=== PATIENT | female | born 1985 | race African-American/Black ===

== ENCOUNTER 2017-05-08 12:38 | Outpatient (CLI) | payer MEDICAID ==
[2017-05-08 13:15] LABS: APPEARANCE,URINE CLEAR; BILIRUBIN,URINE NEGATIVE (NEGATIVE); COLOR,URINE YELLOW; GLUCOSE, URINE NEGATIVE (NEGATIVE); KETONES,URINE NEGATIVE (NEGATIVE); LEUKOCYTE ESTERASE,URINE TRACE (NEGATIVE); NITRITE,URINE NEGATIVE (NEGATIVE); PROTEIN,URINE NEGATIVE (NEGATIVE)
[2017-05-08 13:18] LABS: AMNISURE (ROM) NEGATIVE (NEGATIVE)
[2017-05-08 13:31] LABS: URINE AMPHETAMINES SCREEN NEGATIVE; URINE BARBITURATES SCREEN NEGATIVE; URINE BENZODIAZEPINES SCREEN NEGATIVE; URINE COCAINE SCREEN NEGATIVE; URINE MARIJUANA (THC) SCREEN NEGATIVE; URINE METHADONE SCREEN NEGATIVE; URINE PHENCYCLIDINE SCREEN NEGATIVE
--- NOTE | 2017-05-08 13:38 | Non Stress Test Report ---
Non Stress Test Datetime Report Generated by CPN: 05/08/2017 13:38 DEMOGRAPHIC EGA NST: 37.3 INDICATION Indication for Study: Other Indication for Study (NST) Other: lc VITAL SIGNS Temperature - NST: 99.6 MONITORING Monitor Explained: Monitor Explained; Test Explained; Patient Verbalized Understanding Time on Monitor: 05/08/2017 13:05 Time off Monitor: 05/08/2017 13:37 NST Duration: 32 NST INTERVENTIONS NST Interventions: PO Hydration; Reposition Patient Physician Notified NST: H Mario CNM BABY A: [id number] BABY A Movement : Present Contraction Frequency : rare FHR Baseline : 130 Accelerations : 15X15 Decelerations : None Variability : Moderate 6-25bpm NST Review: Meets Criteria for Reactive NST NST Review and Verified By : Randy Corley RNC NST Results: Reactive NST REPORT Report Trigger: Send Report
--- NOTE | 2017-05-08 14:56 | RADIOLOGY REPORT (SQ) ---
EXAM DESCRIPTION: U/S OB LIMITED COMPLETED DATE/TIME: 05/08/2017 2:34 pm REASON FOR STUDY: growth and barrett COMPARISON: No previous imaging this TECHNIQUE: Limited transabdominal grayscale ultrasound for evaluation of specific requested obstetri neil parameters. LIMITATIONS: None. FINDINGS: By multiple measurements, estimated gestational age is 38 weeks 6 days, estimated due date 05/16/2017. Estimated weight 3743 g. This is at the 75th percentile. BARRETT: 10.7 cm. FHR: 130 beats per minute. PRESENTATION: Cephalic. OTHER: Three-vessel cord. Placenta anterior, grade 2 IMPRESSION: LIMITED OBSTETRICAL ULTRASOUND WITH MEASURED PARAMETERS DELINEATED ABOVE. Trimester of : Third trimester - 28 weeks to delivery. TECHNICAL DOCUMENTATION: JOB ID: [id number] [employer]- All Rights Reserved
== END 2017-05-08 15:21 | disposition home or self-care (01) ==
LOC: LC 12:38
PROVIDERS: ATTEND Obstetrics & Gynecology
PROC: 4A1HXCZ Monitoring of Products of Conception, Cardiac Rate, External Approach (ICD-10-PCS; principal; 2017-05-08)
DX: Z34.93 Encounter for supervision of normal pregnancy, unspecified, third trimester (principal)
CPT/HCPCS: 59025; 76815; 80307; 81001; 84112

== ENCOUNTER 2017-05-16 05:06 | Inpatient (IN) | payer MEDICAID ==
[2017-05-16 05:38] LABS: APPEARANCE,URINE SLIGHTLY-CLOUDY; BILIRUBIN,URINE NEGATIVE (NEGATIVE); COLOR,URINE YELLOW; GLUCOSE, URINE NEGATIVE (NEGATIVE); KETONES,URINE NEGATIVE (NEGATIVE); LEUKOCYTE ESTERASE,URINE NEGATIVE (NEGATIVE); NITRITE,URINE NEGATIVE (NEGATIVE); PROTEIN,URINE NEGATIVE (NEGATIVE); URINE SPECIFIC GRAVITY 1.013
[2017-05-16 05:59] LABS: ABSOLUTE EOSINOPHILS # (AUTO) 0.1 10^3/uL (0.0-0.6); ABSOLUTE LYMPHOCYTES (AUTO) 1.7 10^3/uL (0.5-4.7); ABSOLUTE MONOCYTES (AUTO) 0.6 10^3/uL (0.1-1.4); ABSOLUTE NEUT (AUTO) 7.9 10^3/uL (1.7-8.2); BASOPHILS % (AUTO) 0.4 % (0-2); EOSINOPHILS % (AUTO) 0.5 % (0-6); HEMATOCRIT 36.4 % (36.0-47.0); HEMOGLOBIN 12.1 g/dL (12.0-15.5); LYMPHOCYTES % (AUTO) 16.4 % (13-45); MEAN CORPUSCULAR HEMOGLOBIN 26.9 pg (27.0-33.4); MEAN CORPUSCULAR HGB CONC 33.3 g/dL (32.0-36.0); MEAN CORPUSCULAR VOLUME 81 fl (80-97); PLATELET COUNT 231 10^3/uL (150-450); RED CELL DISTRIBUTION WIDTH 16.3 % (11.5-14.0); SEGMENTED NEUTROPHILS % (AUTO) 76.7 % (42-78); TOTAL CELLS COUNTED % (AUTO) 100 %; WHITE BLOOD COUNT 10.3 10^3/uL (4.0-10.5)
[2017-05-16 06:05] LABS: URINE AMPHETAMINES SCREEN NEGATIVE; URINE BARBITURATES SCREEN NEGATIVE; URINE BENZODIAZEPINES SCREEN NEGATIVE; URINE COCAINE SCREEN NEGATIVE; URINE MARIJUANA (THC) SCREEN NEGATIVE; URINE METHADONE SCREEN NEGATIVE; URINE PHENCYCLIDINE SCREEN NEGATIVE
[2017-05-16] MEDS: RINGERS SOLUTION,LACTATED 1,000 ML IV PRN ×2 (06:21→06:55)
[2017-05-16] MEDS ORDERED: MISOPROSTOL 0.2 MG TABLET ONE (06:48)
[2017-05-16] MEDS ORDERED: LIDOCAINE 1% INJ-PF (10 MG/ML) 30 ML SDV ONE (06:49)
[2017-05-16] MEDS ORDERED: OXYTOCIN/NORMAL SALINE 20 UNIT/1,000 ML RTUINJ ONE (06:49)
[2017-05-16] MEDS ORDERED: FENTANYL CITRATE INJ/PF 100 MCG/2 ML AMPUL ONE (07:05)
[2017-05-16] MEDS ORDERED: BUPIVACAINE HCL 0.25 % INJ/PF (2.5 MG/1 ML) 30 ML VIAL ONE (07:05)
[2017-05-16] MEDS ORDERED: EPHEDRINE SULFATE INJ 50 MG/1 ML AMPULE ONE (07:05)
[2017-05-16] MEDS ORDERED: PHENYLEPHRINE HCL INJ/PF 10 MG/1 ML SDV ONE (07:05)
[2017-05-16] MEDS ORDERED: FENTANYL/BUPIVACAINE/NS/PF 200 MCG/100 ML RTUINJ EPI ONE (07:05)
--- NOTE | 2017-05-16 11:31 | L&D Progress Notes ---
PROGRESS NOTES Datetime Report Generated by CPN: 05/16/2017 11:30 PROGRESS NOTE Impression: Normal Progression of Labor; Reactive Non Stress Test Procedures: Artificial ROM; Sterile Vag Exam Plan: Continue Present Management; Anticipate Vaginal Delivery Informed Consent Obtained: Vaginal Delivery; Risks, Benefits and Alternatives Discussed Vital Signs : Reviewed; Within Normal Limits VAGINAL EXAM Dilatation: 7 Dilatation: 5 Effacement: 90 Effacement: 80 Station: -1 Station: -2 Contractions: q 1-4 min Contractions: q 2-3 MEMBRANES Membranes: Ruptured Membranes: Intact FETUS A FHR - Baseline: 135 Monitoring: External US; Doppler Variability: Moderate 6-25bpm Accelerations: 15X15 Decelerations: Variable FHR Category: Category II Presentation: Vertex SIGNATURE SIGNATURE: [id number] SIGNATURE: [id number] Signature: with User ID: [email or web address]
[2017-05-16] MEDS ORDERED: DIBUCAINE 1% OINTMENT 28 GM TP PRN (11:47)
[2017-05-16] MEDS ORDERED: ZOLPIDEM TARTRATE 5 MG TABLET PO PRN (11:47)
[2017-05-16] MEDS ORDERED: MEASLES,MUMPS&RUBELLA VACC/PF 0.5 ML VIAL SUBCUT PRN (11:47)
[2017-05-16] MEDS ORDERED: HYDROCODONE/ACETAMINOPHEN 5-325 MG TABLET PO PRN ×2 (11:47→11:50)
[2017-05-16] MEDS ORDERED: OXYTOCIN/NORMAL SALINE 20 UNIT/1,000 ML RTUINJ IV PRN (11:47)
[2017-05-16] MEDS ORDERED: DIPH/PERTUSS(ACELL)/TETANUS VAC/PF 0.5 ML SYR (>=10YO) IM PRN (11:47)
[2017-05-16] MEDS ORDERED: BENZOCAINE/MENTHOL AEROSOL SPRAY 56 ML TOP PRN (11:47)
[2017-05-16] MEDS ORDERED: PROMETHAZINE HCL 25 MG TABLET PO PRN (11:50)
[2017-05-16] MEDS ORDERED: ONDANSETRON HCL 8 MG TABLET PO PRN (11:50)
[2017-05-16] MEDS ORDERED: DIPHENHYDRAMINE HCL 25 MG CAPSULE PO PRN (11:51)
[2017-05-16] MEDS ORDERED: ACETAMINOPHEN WITH CODEINE #3 TABLET ONE (12:34)
[2017-05-16] MEDS ORDERED: IBUPROFEN 800 MG TABLET ONE (12:34)
--- NOTE | 2017-05-16 12:55 | Admission Physical ---
Datetime Report Generated by CPN: 05/16/2017 12:55 CURRENT ADMISSION Chief Complaint: Uterine Contractions Indication for Induction: Not Applicable Indication for Induction: Term, Intrauterine ; Active Labor Admit Plan: Admit to Unit; Initiate Labor Protocol ALLERGIES Medication Allergies: No Medication Allergies: No Known Allergies (05/16/2017) Medication Allergies: No Known Allergies (04/11/2016) Latex: No Latex Allergies Food Allergies: no Environmental Allergies: no OBSTETRICAL HISTORY EDC: 05/16/2017 00:00 : 9 Para: 4 Term: 4 : 0 SAB: 4 IAB: 0 Ectopic: 0 Livin Cesareans: 0 VBACs: 0 Multiple Births: 0 Gestational Diabetes: Yes Rh Sensitization: No Incompetent Cervix: No JESSICA: No Infertility: No ART Treatment: No Uterine Anomaly: No IUGR: No Hx Previous C/S: No Macrosomia: No Hx Loss/Stillborn: No PIH: No Hx : No Placenta Previa/Abruption: No Depression/PP Depression: No PTL/PROM: No Post Hemorrhage: No Current Procedures: Ultrasound Obstetrical History Comments: g1-2000, 38 weeks, , in labor 4 hours, female, 7lb 1 oz, GDM g2-2000, SAB g3-unknown, SAB g4-2006, 38 weeks, , in labor 4 hours, 7lb 13oz, female g5-unknown, SAB g6- unknown, SAB g7-2013, 38+1, , male, unknown weight g8- 2015, 38 weeks, , female, 6lb 5oz, IOL for PROM g9- current , late to care at 35 weeks, limited care for 4 weeks, and no PNC since march other than ultrasound SEE RECORDS Alcohol: No Marijuana : No Cocaine: No Other Illicit Drugs: No Cigarettes: Former Smoker. [id number] MEDICAL HISTORY Diabetes: No Blood Transfusion: No Pulmonary Disease (Asthma, TB): No Breast Disease: No Hypertension: No Glaciologist Surgery: No Heart Disease: No Hosp/Surgery: Yes Autoimmune Disorder: No Anesthetic Complications: No Kidney Disease: No Abnormal Pap Smear: No Neuro/Epilepsy: No Psychiatric Disorders: No Other Medical Diseases: Yes Hepatitis/Liver Disease: No Significant Family History: No Varicosities/Phlebitis: No Trauma/Violence : No Thyroid Dysfunction: No Medical History Comments: childbirth x 4, sickle cell trait, d_c x 3, former smoker (Annotations: Data stored by [facility] on behalf of user) INFECTIOUS HISTORY Gonorrhea: No Genital Herpes: No Chlamydia: No Tuberculosis: No Syphilis: No Hepatitis: No HIV/AIDS Exposure: No Rash or Viral Illness: No HPV: No PHYSICAL EXAM General: Normal HEENT: Normal Neurologic: Normal Thyroid: Deferred Heart: Normal Lungs: Normal Breast: Deferred Back: Normal Abdomen: Normal Genitourinary Exam: Normal Extremities: Normal DTRs: Normal Pelvic Type: Adequate Vital Signs: Reviewed VAGINAL EXAM Dilatation: 7 Dilatation: 5 Effacement: 90 Effacement: 80 Station: -1 Station: -2 Contraction Comments: q 1-4 min Contraction Comments: q 2-3 MEMBRANES Membranes: Ruptured Membranes: Intact FETUS A EGA: 40.0 Monitoring: External US Variability: Moderate 6-25bpm Accelerations: 15X15 Decelerations: None FHR Category: Category I Presentation: Vertex Admit Comment: 32yo at 40+0ega presents for regular uterine ctx and cvx 4 cm. She presented by EMS due to transportation issues. SHe has had very limited care. 1st visit was at 35wks. Close interval . Pt reports wants BTL and title XX signed in offive. Sickle cell trait - FOB not tested. ELevated 1 hr GTT - refused 3 hr GTT - did not check sugars. Anticpate . Pelvis proven to 7#13oz. PLANS FOR LABOR AND DELIVERY Labor and Delivery: None Pain Management: Epidural Feeding Preference: Both Benefit of Breast Feed Discussed: Yes Circumcision: No INFORMED CONSENT Informed Consent Obtained: Vaginal Delivery; Risks, Benefits and Alternatives Discussed Signature: with User ID: [email or web address]
[2017-05-16] MEDS: IBUPROFEN 800 MG TABLET PO SCH ×2 (13:34→22:26)
--- NOTE | 2017-05-16 14:32 | Delivery Summary ---
Del Sum A-C Datetime Report Generated by CPN: 05/16/2017 14:32 DELIVERY PERSONNEL DELIVERY PERSONNEL: [id number] Delivery Doctor:: Gael Dee MD Labor and Delivery Nurse:: Hallie Almaguer RNload dropper Nurse:: Clare Caro RN Nursery Nurse:: Gladys Flores RN Software Engineer Intern/LEAN FACILITATOR: Shania Cooper CST Additional Personnel: : Luzmaria Murillo RN MATERNAL INFORMATION Delivery Anesthesia: Epidural Medications After Delivery: Pitocin Drip 20 Units/1000ml NSS Estimated Blood Loss (ml): 100 Maternal Complications: None Provider Comments: Pt C_P. Head delivered OA. Anterior and posterior shoulder delivered. Baby placed on mom's abdomen. After 1 min, cord clamped x 2 and cut by mom. Placenta delivered intact. Laceration repaired as above. LABOR SUMMARY EDC: 05/16/2017 00:00 No. Babies in Womb: 1 Attempted: No Labor Anesthesia: Epidural LABOR INFORMATION Reason for Induction: Not Applicable Onset of Labor: 05/15/2017 11:00 Complete Dilatation: 05/16/2017 10:36 Oxytocin: N/A Group B Beta Strep: negative Antibiotics # of Doses: n/a Antibiotics Time of Last Dose: n/a Name of Antibiotic Given: n/a Steroids Given: None Reason Steroids Not Administered: Not Applicable MEMBRANES Membranes Rupture Method: Artificial Rupture of Membranes: 05/16/2017 09:24 Length of Rupture (hr): 1.58 Amniotic Fluid Color: Clear Amniotic Fluid Amount: Moderate Amniotic Fluid Odor: Normal STAGES OF LABOR Stage 1 hr: 23 Stage 1 min: 36 Stage 2 hr: 0 Stage 2 min: 23 Stage 3 hr: 0 Stage 3 min: 7 Total Time in Labor hr: 24 Total Time in Labor min: 6 VAGINAL DELIVERY Episiotomy: None Laceration #1: Perineal Laceration Extension #1: N/A Laceration Repair: Yes Laceration Repair Note: Perineal abrasion oozing. Reapproximated with 3.0 Vicryl in interrupted fashion. 3 stitches placed. Sponge Count Correct: N/A Sharps Count Correct: Yes CSECTION DELIVERY Primary Indication: N/A Secondary Indication: N/A CSection Incidence: N/A Labor: N/A Elective: N/A CSection Incision: N/A BABY A INFORMATION Infant Delivery Date/Time: 05/16/2017 10:59 Method of Delivery: Vaginal Born in Route : No : N/A Forceps: N/A Vacuum Extraction: N/A Shoulder Dystocia : No PRESENTATION/POSITION BABY A Presentation: Cephalic Cephalic Presentation: Vertex Vertex Position: Left Occipital Anterior Breech Presentation: N/A PLACENTA INFORMATION BABY A Placenta Delivery Time : 05/16/2017 11:06 Placenta Method of Delivery: Spontaneous Placenta Status: Delivered SCORES BABY A Heart Rate 1 min: >100 bpm Resp Effort 1 min: Good Cry Reflex Irritability 1 min: Cough or Sneeze or Pulls Away Muscle Tone 1 min: Active Motion Color 1 min: Body [place], Extremities Blue Resuscitation Effort 1 min: Tactile Stimulation SCORE 1 MIN: 9 Heart Rate 5 min: >100 bpm Resp Effort 5 min: Good Cry Reflex Irritability 5 min: Cough or Sneeze or Pulls Away Muscle Tone 5 min: Active Motion Color 5 min: Body [place], Extremities Blue Resuscitation Effort 5 min: Tactile Stimulation SCORE 5 MIN: 9 INFORMATION BABY A Gestational Age at Delivery: 40.0 Gestational Status: Full Term- 39- 40.6 Weeks Outcome : Liveborn Infant Condition : Stable Infant Sex: Female IDENTIFICATION BABY A Verification Date/Time: 05/16/2017 11:09 ID Band Number: [id number] Mother's Name Verified: Yes RN Verifying : R. Mardarlynfka, RN/A. Gordo, RN WEIGHT/LENGTH BABY A Birthweight (gm): 3740 Infant Weight (lb): 8 Infant Weight (oz): 4 Length (in): 20.00 Infant Length (cm): 50.80 CORD INFORMATION BABY A No. Cord Vessels: 3 Nuchal Cord : N/A Cord Blood Taken: Yes-For Eval (Mom's Blood Type - or O+) Suction: None ASSESSMENT BABY A Infant Complications: None Physical Findings at Delivery: Within Normal Limits Respirations: Appears Normal Skin to Skin: Yes Meat And Poultry Inspector/ALS Called : No Care By: HChristopher Mark, RN Transferred To: Remains with Mother BABY B INFORMATION : N/A SIGNATURES Signature: with User ID: [email or web address]
[2017-05-16] MEDS: DOCUSATE SODIUM 100 MG CAPSULE PO SCH (17:42)
[2017-05-16] MEDS: FERROUS SULFATE 325 MG TABLET PO SCH (17:42)
[2017-05-16] MEDS: ACETAMINOPHEN 325 MG TABLET PO PRN (17:45)
[2017-05-16] MEDS: FAMOTIDINE 20 MG TABLET PO PRN (23:52)
[2017-05-17] MEDS: IBUPROFEN 800 MG TABLET PO SCH ×3 (06:01→21:45)
[2017-05-17 07:36] LABS: HEMATOCRIT 29.8 % (36.0-47.0); MEAN CORPUSCULAR HEMOGLOBIN 26.9 pg (27.0-33.4); MEAN CORPUSCULAR HGB CONC 33.3 g/dL (32.0-36.0); MEAN CORPUSCULAR VOLUME 81 fl (80-97); PLATELET COUNT 206 10^3/uL (150-450); RED BLOOD COUNT 3.69 10^6/uL (3.72-5.28); RED CELL DISTRIBUTION WIDTH 16.3 % (11.5-14.0); WHITE BLOOD COUNT 10.6 10^3/uL (4.0-10.5)
[2017-05-17 07:37] LABS: HEMOGLOBIN 9.9 g/dL (12.0-15.5)
--- NOTE | 2017-05-17 09:04 | PDOC PROGRESS REPORT ---
Subjective-OB Subjective: Post Delivery Day: 1 32 year old. Denies any needs at this time, lochia stable, pain well controlled , voiding without difficulty. Physical Exam (OB) Vital Signs: Temp Pulse Resp BP Pulse Ox 98.1 F 93 18 114/77 99 05/16/17 20:06 05/16/17 20:06 05/16/17 20:06 05/16/17 20:06 05/16/17 20:06 Intake & Output 05/16/17 05/17/17 05/18/17 06:59 06:59 06:59 Intake Total 1000 Balance 1000 Weight 99 kg - Lochia Lochia Amount: Scant < 10 ml Lochia Color: Rubra/Red - Abdomen Description: Tender, Soft, Round Hernia Present: No Fundal Description: Firm, Midline Fundal Height: u/u - u/2 Objective-Diagnostic Laboratory: 05/17/17 07:18 05/17/17 07:18 WBC 10.6 H RBC 3.69 L Hgb 9.9 L D Hct 29.8 L MCV 81 MCH 26.9 L MCHC 33.3 RDW 16.3 H Plt Count 206 Assessment and Plan(PN) - Assessment and Plan (1) Delivery normal Is this a current diagnosis for this admission?: Yes Plan: routine pp care (2) Insufficient antepartum care Is this a current diagnosis for this admission?: Yes Plan: d/c planning - Time Spent with Patient Time with patient: Less than 15 minutes Critical Time spent with patient: Less than 15 minutes Medications reviewed and adjusted accordingly: Yes - Disposition Anticipated Discharge: Home Within: within 24 hours
[2017-05-17] MEDS: SENNOSIDES/DOCUSATE 8.6-50 MG 1 EACH TABLET PO SCH (09:31)
[2017-05-17] MEDS: FERROUS SULFATE 325 MG TABLET PO SCH ×2 (09:31→17:04)
[2017-05-17] MEDS: PRENATAL VITAMIN W DHA CAPSULE PO SCH (09:31)
[2017-05-17] MEDS: DOCUSATE SODIUM 100 MG CAPSULE PO SCH ×2 (09:32→17:04)
[2017-05-17] MEDS: FAMOTIDINE 20 MG TABLET PO PRN ×2 (09:32→23:07)
[2017-05-17] MEDS: ACETAMINOPHEN 325 MG TABLET PO PRN (17:04)
[2017-05-18] MEDS: IBUPROFEN 800 MG TABLET PO SCH (06:40)
[2017-05-18] MEDS: DOCUSATE SODIUM 100 MG CAPSULE PO SCH (09:28)
[2017-05-18] MEDS: FERROUS SULFATE 325 MG TABLET PO SCH (09:28)
[2017-05-18] MEDS: SENNOSIDES/DOCUSATE 8.6-50 MG 1 EACH TABLET PO SCH (09:28)
[2017-05-18] MEDS: PRENATAL VITAMIN W DHA CAPSULE PO SCH (09:28)
[2017-05-18] MEDS: FAMOTIDINE 20 MG TABLET PO PRN (09:29)
[2017-05-18 10:30] VITALS: BP 111/72
--- NOTE | 2017-05-18 10:44 | PDOC PROGRESS REPORT ---
Subjective-OB Subjective: Post Delivery Day: 32 year old. Denies any needs at this time Doing well, c/o of cramping and would like to get some [place] for home, scant bleeding, breast/bottle feeding, voiding, ambulating Physical Exam (OB) Vital Signs: Temp Pulse Resp BP Pulse Ox 98.2 F 82 16 111/72 99 05/18/17 10:23 05/18/17 10:23 05/18/17 10:23 05/18/17 10:23 05/18/17 10:23 Intake & Output 05/17/17 05/18/17 05/19/17 06:59 06:59 06:59 Intake Total 1000 Balance 1000 - PIH/Pre-Eclampsia DTR's: 2 + Clonus: Negative Headache: Absent Epigastric Pain: No Visual Changes: No - Lochia Lochia Amount: Small 10-25 ml Lochia Color: Rubra/Red - Abdomen Description: Soft Hernia Present: No Fundal Description: Firm, Midline Fundal Height: u/u - u/2 Objective-Diagnostic Laboratory: 05/17/17 07:18 Assessment and Plan(PN) - Assessment and Plan (1) Insufficient care, delivered, current hospitalization Is this a current diagnosis for this admission?: Yes (2) Delivery normal Is this a current diagnosis for this admission?: Yes - Time Spent with Patient Time with patient: Less than 15 minutes Medications reviewed and adjusted accordingly: Yes - Disposition Anticipated Discharge: Home Within: Other - home today
--- NOTE | 2017-05-18 10:50 | PDOC DISCHARGE SUMMARY ---
Final Diagnosis Discharge Date: 05/18/17 - Final Diagnosis (2) Insufficient care, delivered, current hospitalization Is this a current diagnosis for this admission?: Yes Discharge Data - Discharge Medication Prescriptions: Hydrocodone/Acetaminophen [[place] 5-325 mg Tablet] 1 tab PO Q6HP PRN #10 tablet PRN Reason: Vit/Dha [ Multi + Dha Capsule] 1 cap PO DAILY #30 capsule Home Medications: Vit/Iron Fum/Folic AC [ Tablet] 1 tab PO DAILY #0 tablet Hydrocodone/Acetaminophen [[place] 5-325 mg Tablet] 1 tab PO Q6HP PRN #10 tablet 05/18/17 Vit/Dha [ Multi + Dha Capsule] 1 cap PO DAILY #30 capsule 05/18 Gestational Age: 40 Reason(s) for Admission: Onset of Labor Procedures: NST, Ultrasound Intrapartum Procedure(s): Spontaneous Vaginal Delivery Complication(s): Laceration-Perineal Laceration-Degree: 1st - [place] Data Baby 1 Female at 1 minute: 9 at 5 minutes: 9 Weight: 3.742 kg Home with Mother: Yes Complications: No - Diagnosis Test Laboratory: Temp Pulse Resp BP Pulse Ox 98.2 F 82 16 111/72 99 05/18/17 10:23 05/18/17 10:23 05/18/17 10:23 05/18/17 10:23 05/18/17 10:23 05/16/17 05/16/17 05/17/17 05:11 05:46 07:18 RBC 4.50 3.69 L Hgb 12.1 9.9 L D Hct 36.4 29.8 L Urine Opiates Screen NEGATIVE - Discharge information/Instructions Discharge Activity: Activity As Tolerated, No Lifting Over 10 Pounds, No Lifting /Push/Pulling Discharge Diet: As Tolerated Disposition: HOME, SELF-CARE Follow [facility] with: [facility] in: 4, Weeks
== END 2017-05-18 13:04 | disposition home or self-care (01) | DRG 775 ==
LOC: LC 05:06 → LR 05:43 → 2S 12:52
PROVIDERS: ADMIT Student in an Organized Health Care Education/Training Program; ATTEND Student in an Organized Health Care Education/Training Program
PROC: 10E0XZZ Delivery of Products of Conception, External Approach (ICD-10-PCS; principal; 2017-05-16)
PROC: 4A1HXCZ Monitoring of Products of Conception, Cardiac Rate, External Approach (ICD-10-PCS; 2017-05-16)
PROC: 0HQ9XZZ Repair Perineum Skin, External Approach (ICD-10-PCS; 2017-05-16)
PROC: 10907ZC Drainage of Amniotic Fluid, Therapeutic from Products of Conception, Via Natural or Artificial Opening (ICD-10-PCS; 2017-05-16)
DX: O70.0 First degree perineal laceration during delivery (principal); O99.334 Smoking (tobacco) complicating childbirth; F17.200 Nicotine dependence, unspecified, uncomplicated; Z37.0 Single live birth; Z3A.40 40 weeks gestation of pregnancy; Z87.891 Personal history of nicotine dependence
CPT/HCPCS: 36415; 80307; 81005; 85025; 85027; 86592; 86850; 86900; 86901; 90715; 94760; J2370; J2590; J3010; J3490

== ENCOUNTER 2019-03-27 08:26 | Emergency (ER) | payer MEDICAID ==
[2019-03-27 08:30] VITALS: BP 123/71
[2019-03-27] MEDS ORDERED: IBUPROFEN 800 MG TABLET PO ONE (10:16)
--- NOTE | 2019-03-27 10:16 | ER Document Report ---
ED Fall - General Chief Complaint: Fall Injury Stated Complaint: FALL/LOW BACK PAIN,LEFT SHOULDER PAIN Time Seen by Provider: 03/27/19 10:10 Primary Care Provider: MONIQUE HOLLOWAY MD [Primary Care Provider] - Follow up as needed Mode of Arrival: Ambulatory Information source: Patient Notes: 34-year-old female presented to ED for tripping this morning when she fell she tried to catch herself with her right arm injuring her right shoulder. She states her foot had went into a hole. She states when she fell she had a shooting pain of her back and when she tried to walk it got a little worse so she decided to come to the emergency room. She does not have leg pain but she does have low back and right shoulder pain. States she does have tenderness to her chest wall muscles also. Will get x-ray of the lower back and the right shoulder. TRAVEL OUTSIDE OF THE [place] IN LAST 30 DAYS: No - HPI Occurred: This morning Where: Outdoors Context: Tripped Associated symptoms: None Location of injury/pain: Back, Chest - Chest wall, Shoulder - Right Quality of pain: Sharp Severity: Moderate Pain Level: 2 - Related data Allergies/Adverse Reactions: No Known Allergies Allergy (Verified 03/27/19 08:33) Past Medical History - General Information source: Patient - Social History Smoking Status: Former Smoker Chew tobacco use (# tins/day): No Frequency of alcohol use: None Drug Abuse: None Lives with: Family Family History: Reviewed & Not Pertinent Patient has suicidal ideation: No Patient has homicidal ideation: No Malignancy Medical History: Reports: None GI Medical History: Reports: None Musculoskeletal Medical History: Reports None Skin Medical History: Reports None Psychiatric Medical History: Reports: None Traumatic Medical History: Reports: None Infectious Medical History: Reports: None Surgical Hx: Negative Past Surgical History: Reports: None - Immunizations Immunizations up to date: Yes Hx Diphtheria, Pertussis, Tetanus Vaccination: Yes Review of Systems - Review of Systems Constitutional: No symptoms reported EENT: No symptoms reported Cardiovascular: No symptoms reported Respiratory: No symptoms reported Gastrointestinal: No symptoms reported Genitourinary: No symptoms reported Female Genitourinary: No symptoms reported Musculoskeletal: No symptoms reported, Back pain, Joint pain, Muscle pain, Muscle stiffness Skin: No symptoms reported Hematologic/Lymphatic: No symptoms reported Neurological/Psychological: No symptoms reported -: Yes All other systems reviewed and negative Physical Exam - Vital signs Vitals: Temp Pulse Resp BP Pulse Ox 98.1 F 95 26 H 123/71 98 03/27/19 08:29 03/27/19 08:29 03/27/19 08:29 03/27/19 08:29 03/27/19 08:29 Interpretation: Normal - General General appearance: Appears well, Alert - HEENT Head: Normocephalic, Atraumatic Eyes: Normal Pupils: PERRL - Respiratory Respiratory status: No respiratory distress Chest status: Nontender Breath sounds: Normal Chest palpation: Normal - Cardiovascular Rhythm: Regular Heart sounds: Normal auscultation Murmur: No - Abdominal Inspection: Normal Distension: No distension Bowel sounds: Normal Tenderness: Nontender Organomegaly: No organomegaly - Back Back: Normal, Tender. No: Deformity/step-off, CVA tenderness, Vertebra tenderness, Scars, Scoliosis, Wounds Notes: Low back pain with no vertebral tenderness. No signs or symptoms of cauda equina - Extremities General upper extremity: Normal inspection, Normal color, Normal ROM, Normal temperature General lower extremity: Normal inspection, Nontender, Normal color, Normal ROM, Normal temperature, Normal weight bearing. No: Shawn's sign Shoulder: Tender. No: Abrasion, Deformity, Ecchymosis, Instability, Laceration, Limited ROM - Neurological Neuro grossly intact: Yes Cognition: Normal Orientation: AAOx4 [place] Com[place] Scale Eye Opening: Spontaneous [place] Coma Scale Verbal: Oriented [place] Scale Motor: Obeys Commands [place] Scale Total: 15 Speech: Normal Motor strength normal: LUE, RUE, LLE, RLE Sensory: Normal - Psychological Associated symptoms: Normal affect, Normal mood - Skin Skin Temperature: Warm Skin Moisture: Dry Skin Color: Normal Course - Re-evaluation Re-evalutation: 03/27/19 11:17 After performing a Medical Screening Examination, I estimate there is LOW risk for EXPANDING OR RUPTURED ABDOMINAL AORTIC ANEURYSM, CAUDA EQUINA SYNDROME, EPIDURAL MASS LESION, or HERNIATED DISK CAUSING SEVERE SPINAL STENOSIS, thus I consider the discharge disposition reasonable. I have reevaluated this patient multiple times and no significant life threatening changes are noted. The patien t and I have discussed the diagnosis and risks, and we agree with discharging home and close follow-up. We also discussed returning to the Emergency Department immediately if new or worsening symptoms occur with the understanding that symptoms and presentations can change. We have discussed the symptoms which are most concerning (e.g., saddle anesthesia, urinary or bowel incontinence or retention, changing or worsening pain) that necessitate immediate return. Juan x-rays with patient. There were no injuries to the shoulder or back noted on x- ray. With reports of x-rays given to patient. Patient was given instructions for ice packs warm packs and exercises for shoulder and low back. Patient was given prescription for muscle relaxers and ibuprofen. Patient was discharged home after she verbalized understanding and agreement with treatment plan. - Vital Signs Vital signs: Temp Pulse Resp BP Pulse Ox 98.1 F 95 26 H 123/71 98 03/27/19 08:29 03/27/19 08:29 03/27/19 08:29 03/27/19 08:29 03/27/19 08:29 - Diagnostic Test Radiology reviewed: Image reviewed, Reports reviewed Discharge - Discharge Clinical Impression: Shoulder pain Qualifiers: Chronicity: acute Laterality: right Qualified Code(s): M25.511 - Pain in right shoulder Low back pain Qualifiers: Chronicity: acute Back pain laterality: right Sciatica presence: without sciatica Qualified Code(s): M54.5 - Low back pain Condition: Stable Disposition: HOME, SELF-CARE Additional Instructions: MUSCLE STRAIN: You have strained a muscle -- torn the fibers within the muscle. This often occurs with strenuous exertion, or during an injury that suddenly stretches the muscle. The seriousness of a strain varies. Some strains heal within days, others cause problems for months. X-rays cannot show a muscle strain. X-rays are taken only if symptoms suggest that a fracture could be present. The usual treatment of a muscle strain is rest and ice packs. Sometimes, a sling, splint, or crutches may be necessary to rest the muscle. The muscle can be used again once pain subsides. Severe strains require a special exercise and stretching program to prevent permanent stiffness and disability. Your doctor will advise you if this will be necessary. Call the doctor immediately if pain or swelling becomes severe, or if numbness or discoloration develop. CONTUSION: Your injury has resulted in a contusion -- a crushing of the deep tissues. No injury to important structures was detected during the physician's exam. Contusions vary in the amount of pain they cause, and in the length of time required for healing. Typically, the area will become bruised, and will remain painful to touch for two or three weeks. However, most patients are back to wor aleida and playing within a few days. After the initial period of rest and cold-packs, your symptoms (together with the doctor's recommendations) will determine how rapidly you can get back to full activity. Usually this means "do what feels okay, but don't do things that hurt." If re-examination was recommended, it's important to follow up as instructed. Call the doctor or return any time if pain increases, if swelling becomes severe, if you develop numbness or weakness in an injured extremity, or if any other alarming symptoms occur. Shoulder Injury You have injured your shoulder. This usually results from stretching or tearing of the tendons during trauma. Time and protection are required in order to heal properly. Many injuries are quite disabling, and should be taken seriously. Initial treatment includes cold packs and a sling to rest the shoulder. The physician has assessed the seriousness of your injury, and has outlined a treatment plan. Understand that this treatment may change, depending on how you progress. If a re-examination was recommended, it is important that you follow up as instructed. Some shoulder injuries (such as partial tear of the rotator cuff) are only suspected after you've failed to improve. Call us if there's severe pain, numbness, or loss of function. LOW BACK PAIN: Three out of every four people will have an episode of disabling back pain during their lifetime. Most commonly the pain is due to straining of the muscles and ligaments in the low back. Usual treatment includes: (1) Rest on a firm surface. Avoid lying on your stomach. (2) Ice pack the painful area. After a few days, gentle heat may be used intermittently to relax the area, or ice packs can be continued. (3) Medication may be needed -- muscle relaxers and antiinflammatory medicines are commonly used. (4) As the back improves, exercises are prescribed to strengthen the back and abdominal muscles. Your doctor will advise you on the proper care for your back at each stage in your recovery. You may be better in a few days -- or healing may take several weeks. If new symptoms of a "herniated disc" (radiation of pain, numbness, or tingling down the back of the leg or weakness in the leg) occur, you should be re-examined. Further testing may be necessary. USE OF TYLENOL (ACETAMINOPHEN): Acetaminophen may be taken for pain relief or fever control. It's much safer than aspirin, offering a wider range of "safe" dosages. It is safe during . Some brand names are Tylenol, Panadol, Datril, Anacin 3, Tempra, and Liquiprin. Acetaminophen can be repeated every four hours. The following are maximum recommended dosages: WEIGHT Dose Drops Elixir Chewable(80mg) (LBS.) drprs=droppers tsp=teaspoon 6 40 mg 0.4 ml (1/2) 6-11 80 mg 0.8 ml (full) tsp 1 tab 12-16 120 mg 1 1/2 drprs 3/4 tsp 1 1/2 tabs 17-23 160 mg 2 drprs 1 tsp 2 tabs 24-30 240 mg 3 drprs 1 1/2 tsp 3 tabs 30-35 320 mg 2 tsp 4 tabs 36-41 360 mg 2 1/4 tsp 4 1/2 tabs 42-47 400 mg 2 1/2 tsp 5 tabs 48-53 480 mg 3 tsp 6 tabs 54-59 520 mg 3 1/4 tsp 6 1/2 tabs 60-64 560 mg 3 1/2 tsp 7 tabs 65-70 600 mg 3 3/4 tsp 7 1/2 tabs 71-76 640 mg 4 tsp 8 tabs 77-82 720 mg 4 1/2 tsp 9 tabs 83-88 800 mg 5 tsp 10 tabs >89 pounds or adults 650 mg to 900 mg Acetaminophen can be repeated every four hours. Maximum dose not to exceed 4000 mg a day. These maximum recommended dosages are slightly higher than the dosages written on the product container, but these dosages are very safe and below the toxic dosage for acetaminophen. ICE PACKS: Apply ice packs frequently against the painful area. Many different schedules are recommended, such as "20 minutes on, 20 minutes off" or "one hour ice, two hours rest." If you need to work, you may need to go longer between ice treatments. You should plan to have the area ice packed AT LEAST one fourth of the time. The ice should be applied over the wrap, tape, or splint, or over a layer of cloth -- not directly against the skin. Some ice bags have a built-in cloth and can be put directly on the skin. WARM PACKS: After approximately two days, apply gentle heat (such as a heating pad or hot water bottle) for about 20 to 30 minutes about every two hours -- at least four times daily. Warmth and elevation will help you make a more rapid recovery, and will ease the pain considerably. Do not use HOT heat, and never apply heat for longer than 30 minutes. The continuous heat can invisibly damage skin and muscles -- even when no burn is seen on the surface. Damaged muscles can make you MORE sore. MUSCLE RELAXERS: Muscle relaxing medications are usually prescribed for acute muscle spasm or injury to the neck and back. They are often combined with antiinflammatory pain medication for increased relief. You may stop the muscle relaxer when the pain and stiffness have improved. Start the medication again if spasms recur. Muscle relaxers may cause drowsiness, especially with the first dose. Do not operate machinery or drive while under the effects of the medication. Most muscle relaxers last up to 24 hours. Do not combine the medication with alcohol. Exercise Program for the Shoulder Since the shoulder moves in so many directions, the joint attachment is weak. Muscles provide most of the stability to the shoulder. You must exercise your shoulder to prevent painful instability or stiffening. PASSIVE - These may be begun within a few days of the injury. While standing, lean forward, allowing the arm to hang down towards the floor. Move the arm in small circles while slowly twisting your chest towards and away from the hanging arm. Do this for one minute. ACTIVE - These may be performed when the doctor gives permission. Begin with the arms at the sides. Raise the arms forward (shoulder's width apart) until they reach shoulder level. Then slowly swing both arms back until they are aiming straight out away from each other. Then bring them forward again, and finally, lower them to your sides. Repeat 20 to 30 times. As you improve, put weights in your hands for the exercise. Start with one pound, and work up to 10 pounds. Never use more than is comfortable. Athletes may work up to 30 pounds. Stretching Exercises for the Back The physician has recommended that you begin stretching exercises for your back. These are often used even while the back is painful. However, you should notify the physician if the activities seem to increase your pain. PELVIC TILT: Lie flat on your back with knees bent. Tighten your stomach and buttock muscles so it flattens your lower back against the floor. Hold 10 seconds. Repeat 10 times, twice daily. KNEE RAISE: Lying on the back with knees bent, raise one knee to your chest, then the other. Hold both knees against the chest 10 seconds, then lower one knee at a time. Repeat 10 times, twice daily. PARTIAL TRUNK RAISE: Lie face down, arms at your sides. Keeping your waist on the floor, use your arms raise your chest up. Support yourself on your elbows for 30 seconds. Repeat twice daily, increasing the time to two minutes as you recover. FOLLOW-UP CARE: If you have been referred to a physician for follow-up care, call the physicians office for an appointment as you were instructed or within the next two days. If you experience worsening or a significant change in your symptoms, notify the physician immediately or return to the Emergency Department at any time for re-evaluation. Prescriptions: Cyclobenzaprine HCl [Flexeril 10 mg Tablet] 10 mg PO TIDP PRN #15 tab PRN Reason: Ibuprofen [Motrin 800 mg Tablet] 800 mg PO Q8H PRN #30 tab PRN Reason: Referrals: MONIQUE HOLLOWAY MD [Primary Care Provider] - Follow up as needed
--- NOTE | 2019-03-27 10:54 | RADIOLOGY REPORT (SQ) ---
EXAM DESCRIPTION: SHOULDER RIGHT 2 OR MORE VIEWS COMPLETED DATE/TIME: 03/27/2019 10:41 am REASON FOR STUDY: fall pain inshouldr and back COMPARISON: None. NUMBER OF VIEWS: Three views. TECHNIQUE: Internal rotation, external rotation, and Y view images acquired of the right shoulder. LIMITATIONS: None. FINDINGS: MINERALIZATION: Normal. BONES: No acute fracture. No worrisome bone lesions. JOINTS: No dislocation. VISUALIZED LUNGS AND RIBS: No pneumothorax. No rib fracture. SOFT TISSUES: No radiopaque foreign body. OTHER: No other significant finding. IMPRESSION: NEGATIVE STUDY OF THE RIGHT SHOULDER. NO RADIOGRAPHIC EVIDENCE OF ACUTE INJURY. TECHNICAL DOCUMENTATION: JOB ID: [id number] [employer]- All Rights Reserved Reading location - IP/workstation name: [email or web address]
--- NOTE | 2019-03-27 10:54 | RADIOLOGY REPORT (SQ) ---
EXAM DESCRIPTION: L SPINE WHOLE COMPLETED DATE/TIME: 03/27/2019 10:41 am REASON FOR STUDY: fall pain inshouldr and back COMPARISON: None. NUMBER OF VIEWS: Five views including obliques. TECHNIQUE: AP, lateral, oblique, and sacral radiographic images acquired of the lumbar spine. LIMITATIONS: None. FINDINGS: MINERALIZATION: Normal. SEGMENTATION: Normal. No transitional anatomy. ALIGNMENT: Normal. VERTEBRAE: Maintained height. No fracture or worrisome bone lesion. DISCS: Preserved height. No significant osteophytes or end plate irregularity. POSTERIOR ELEMENTS: Pedicles and facets are intact. No pars defect or posterior arch defects. HARDWARE: None in the spine. PARASPINAL SOFT TISSUES: Normal. PELVIS: Intact as visualized. No fractures or worrisome bone lesions. SI joints intact. OTHER: No other significant finding. IMPRESSION: NORMAL 5 VIEW LUMBAR SPINE. TECHNICAL DOCUMENTATION: JOB ID: [id number] [employer]- All Rights Reserved Reading location - IP/workstation name: [email or web address]
== END 2019-03-27 11:25 | disposition home or self-care (01) ==
LOC: ER 08:26
DX: M54.5 Low back pain (principal); M25.511 Pain in right shoulder; M79.10 Myalgia, unspecified site; W19.XXXA Unspecified fall, initial encounter; Z87.891 Personal history of nicotine dependence
CPT/HCPCS: 99283; 72110; 73030; J3490

== ENCOUNTER → 2019-08-16 | Outpatient (CLI) | payer SELFPAY ==
--- NOTE | 2019-08-16 13:35 | RADIOLOGY REPORT (SQ) ---
EXAM DESCRIPTION: U/S [id number] TRNABD 1GES W/ODOP IMAGES COMPLETED DATE/TIME: 08/16/2019 11:38 am REASON FOR STUDY: ENCOUNTER FOR SUPRVSN OF NORMAL , FIRST TRIMESTER Z34.81 ENCOUNTER FOR S UPRVSN OF NORMAL , FIRST TRIM COMPARISON: None. TECHNIQUE: Transvaginal and transabdominal static and realtime grayscale images acquired of the pelv is. Additional selected spectral and color Doppler images recorded. All images stored on PACs. bHCG: Not available CLINICAL DATES: Last menses generates EGA of 9 weeks 4 days LIMITATIONS: None. FINDINGS: FETUS: Single Living intrauterine . ULTRASOUND EGA: 8 weeks 6 days ULTRASOUND CALIXTO: 03/21/2020 EFW: Not applicable less than 20 weeks. CRL: 2.2 cm FHR: 162 beats per minute. SURVEY: Too early to assess. AMNIOTIC FLUID: Adequate amount. PLACENTA: Not yet developed due to early gestation. SUBCHORIONIC BLEED: No. SIZE OF BLEED: Not applicable. UTERUS: No masses. No anomalies. Uterus is 15 x 8 x 7 cm in size CERVICAL LENGTH: Closed, 4.7 cm RIGHT ADNEXA: Ovary not identified due to poor acoustical window. No adnexal free fluid. No adnexal masses. LEFT ADNEXA: Normal ovary with normal vascular flow. Left ovary 4.7 x 4.5 x 4.6 cm in size with a 4. 5 cm simple cyst No adnexal free fluid. No adnexal masses. FREE FLUID: None. OTHER: No other significant finding. IMPRESSION: LIVING INTRAUTERINE . EGA 8 weeks 6 days Trimester of : First trimester - 0 to 13 weeks. TECHNICAL DOCUMENTATION: JOB ID: [id number] [employer]- All Rights Reserved rev-09/11 Reading location - IP/workstation name: [email or web address]
== END ==
LOC: RAD 10:54
PROVIDERS: ATTEND Midwife
DX: Z34.81 Encounter for supervision of other normal pregnancy, first trimester (principal)
CPT/HCPCS: 76801

== ENCOUNTER 2020-03-14 23:22 | Inpatient (IN) | payer MEDICAID ==
[2020-03-15 00:20] LABS: APPEARANCE,URINE CLEAR; BILIRUBIN,URINE NEGATIVE (NEGATIVE); COLOR,URINE STRAW; GLUCOSE, URINE NEGATIVE (NEGATIVE); KETONES,URINE NEGATIVE (NEGATIVE); LEUKOCYTE ESTERASE,URINE NEGATIVE (NEGATIVE); NITRITE,URINE NEGATIVE (NEGATIVE); PROTEIN,URINE NEGATIVE (NEGATIVE); URINE SPECIFIC GRAVITY 1.003; UROBILINOGEN,URINE NEGATIVE mg/dL (<2.0)
[2020-03-15] MEDS ORDERED: RINGERS SOLUTION,LACTATED 1,000 ML IV PRN (00:30)
[2020-03-15 00:43] LABS: URINE AMPHETAMINES SCREEN NEGATIVE; URINE BARBITURATES SCREEN NEGATIVE; URINE BENZODIAZEPINES SCREEN NEGATIVE; URINE COCAINE SCREEN NEGATIVE; URINE MARIJUANA (THC) SCREEN NEGATIVE; URINE METHADONE SCREEN NEGATIVE; URINE PHENCYCLIDINE SCREEN NEGATIVE
[2020-03-15] MEDS ORDERED: RINGERS SOLUTION,LACTATED 1,000 ML IV ONE (00:45)
[2020-03-15] MEDS ORDERED: OXYTOCIN 10 UNIT/ML VIAL ONE (00:56)
[2020-03-15] MEDS ORDERED: MISOPROSTOL 0.2 MG TABLET ONE (00:56)
[2020-03-15] MEDS ORDERED: LIDOCAINE 1% INJ-PF (10 MG/ML) 30 ML SDV ONE (00:56)
[2020-03-15] MEDS ORDERED: OXYTOCIN/0.9 % SODIUM CHLORIDE 30 UNIT/500 ML RTUINJ ONE (00:56)
[2020-03-15 01:16] LABS: ABSOLUTE EOSINOPHILS # (AUTO) 0.1 10^3/uL (0.0-0.6); ABSOLUTE LYMPHOCYTES (AUTO) 2.3 10^3/uL (0.5-4.7); ABSOLUTE MONOCYTES (AUTO) 0.7 10^3/uL (0.1-1.4); ABSOLUTE NEUT (AUTO) 4.6 10^3/uL (1.7-8.2); BASOPHILS % (AUTO) 0.4 % (0-2); EOSINOPHILS % (AUTO) 1.9 % (0-6); HEMATOCRIT 35.8 % (36.0-47.0); HEMOGLOBIN 11.9 g/dL (12.0-15.5); LYMPHOCYTES % (AUTO) 29.4 % (13-45); MEAN CORPUSCULAR HGB CONC 33.2 g/dL (32.0-36.0); MEAN CORPUSCULAR VOLUME 81 fl (80-97); MONOCYTES % (AUTO) 8.5 % (3-13); PLATELET COUNT 209 10^3/uL (150-450); RED CELL DISTRIBUTION WIDTH 17.1 % (11.5-14.0); SEGMENTED NEUTROPHILS % (AUTO) 59.8 % (42-78); TOTAL CELLS COUNTED % (AUTO) 100 %; WHITE BLOOD COUNT 7.7 10^3/uL (4.0-10.5)
[2020-03-15] MEDS ORDERED: MAG HYDROX/AL HYDROX/SIMETH SUSP 30 ML UDCUP PO ONE (01:25)
[2020-03-15] MEDS ORDERED: MAG HYDROX/AL HYDROX/SIMETH SUSP 30 ML UDCUP ONE (01:25)
--- NOTE | 2020-03-15 01:58 | Admission Physical ---
Datetime Report Generated by CPN: 03/15/2020 01:58 CURRENT ADMISSION Chief Complaint: Uterine Contractions; Suspected Ruptured Membranes Indication for Induction: Not Applicable Admit Impression : Term, Intrauterine ; Active Labor Admit Plan: Admit to Unit; Initiate Labor Protocol ALLERGIES Medication Allergies: No Medication Allergies: No Known Allergies (03/15/2020) Latex: No Latex Allergies Food Allergies: none Environmental Allergies: none OBSTETRICAL HISTORY EDC: 03/16/2020 00:00 : 10 Para: 5 : 0 IAB: 3 Ectopic: 1 Livin Cesareans: 0 Gestational Diabetes: Yes Rh Sensitization: No Incompetent Cervix: No JESSICA: No Infertility: No ART Treatment: No Uterine Anomaly: No IUGR: No Hx Previous C/S: No Macrosomia: No Hx Loss/Stillborn: No PIH: No Hx : No Placenta Previa/Abruption: No Depression/PP Depression: No PTL/PROM: No Post Hemorrhage: No Current Procedures: Ultrasound Obstetrical History Comments: G1- 1999, Vag G2- 2000, IAB G3- ?- Ectopic G4- 2005, Vag G5- ?- IAB G6- ?- IAB 2013, Vag G82015- Vag G92017- Vag G10- Current- GDM diet controlled SEE RECORDS Alcohol: No Marijuana : No Cocaine: No Other Illicit Drugs: No Cigarettes: Former Smoker. [id number] MEDICAL HISTORY Diabetes: Yes Diabetes Type: Gestational Diabetes Pulmonary Disease (Asthma, TB): No Breast Disease: No Hypertension: No Food Service Attendant Surgery: No Heart Disease: No Hosp/Surgery: Yes Autoimmune Disorder: No Anesthetic Complications: No Kidney Disease: Yes Abnormal Pap Smear: No Neuro/Epilepsy: No Psychiatric Disorders: No Other Medical Diseases: No Hepatitis/Liver Disease: No Significant Family History: No Varicosities/Phlebitis: No Trauma/Violence : No Thyroid Dysfunction: Yes Medical History Comments: UTI treated this , d _ c x 3, child x 5 INFECTIOUS HISTORY Gonorrhea: No Genital Herpes: No Chlamydia: No Tuberculosis: No Syphilis: No Hepatitis: No HIV/AIDS Exposure: No Rash or Viral Illness: No HPV: No PHYSICAL EXAM General: Normal HEENT: Normal Neurologic: Normal Thyroid: Normal Heart: Normal Lungs: Normal Breast: Deferred Back: Normal Abdomen: Normal Genitourinary Exam: Normal Extremities: Normal DTRs: Normal Pelvic Type: Adequate Physical Exam Comments: No lesions seen on bottom. VAGINAL EXAM Dilatation: 1 Effacement: 0 Station: -2 MEMBRANES Pooling: Positive Membranes: Ruptured FETUS A EGA: 39.6 Monitoring: External US FHR- Baseline: 120 Variability: Absent - Undetectable Decelerations: None FHR Category: Category I Presentation: Vertex Admit Comment: Admit for labor. Pt denies hsv, no lesions seen on bottom. PLANS FOR LABOR AND DELIVERY Labor and Delivery: None Pain Management: Epidural Feeding Preference: Both Circumcision: Yes INFORMED CONSENT Signature: with User ID: [email or web address]
[2020-03-15] MEDS ORDERED: OXYTOCIN/0.9 % SODIUM CHLORIDE 30 UNIT/500 ML RTUINJ IV PRN ×2 (06:00→12:49)
--- NOTE | 2020-03-15 08:42 | L&D Progress Notes ---
PROGRESS NOTES Datetime Report Generated by CPN: 03/15/2020 08:41 PROGRESS NOTE Impression: Reassuring Heart Rate Plan: Continue Present Management; Augmentation Vital Signs : Reviewed Comment: Assuming care of patient. SROM w/ occassional contractions. Pitocin infusing to augment labor. GBS negative. Pt does plan an epidural when in active labor. Hx GDM this , thyromegaly, and AMA. Vtx on u/s early this week. EFW via everardo's 8 lbs. Attending MD today is Dr Reyes. VAGINAL EXAM Dilatation: 1 Effacement: 0 Station: -2 Contractions: occassional occassional LAST VAGINAL EXAM-NURSING Nursing Exam Dilitation: 1.0 Nursing Exam Effacement: thick Nursing Exam Station: high MEMBRANES Pooling: Positive Membranes: Ruptured FETUS A FHR - Baseline: 135 Monitoring: External US Variability: Moderate 6-25bpm Accelerations: 15X15 Decelerations: None FHR Category: Category I : 40.0 Presentation: Vertex SIGNATURE SIGNATURE: [id number] Assignment: Cindy Reyes MD Signature: with User ID: Snow : with User ID: Snow
[2020-03-15] MEDS ORDERED: GLUCAGON,HUMAN RECOMB 1 MG INJ IM PRN (08:43)
[2020-03-15] MEDS ORDERED: DEXTROSE 40% GEL 15 GM TUBE PO PRN ×2 (08:43)
[2020-03-15] MEDS ORDERED: DEXTROSE 50%-WATER 25 GM/50 ML DISP.SYRIN IV PRN ×2 (08:43)
--- NOTE | 2020-03-15 10:25 | L&D Progress Notes ---
PROGRESS NOTES Datetime Report Generated by CPN: 03/15/2020 10:25 PROGRESS NOTE Impression: Reassuring Heart Rate Procedures: Artificial ROM; Intrauterine Pressure Catheter; Sterile Vag Exam Procedures- Other: AROM of forbag Plan: Continue Present Management; Augmentation Vital Signs : Reviewed Comment: Pt becoming uncomfortable. Ve 4/50/ -2, vtx. AROM of forbag. Clear blood tinged fluid. IUPC placed to better detect contraction pattern. Pt may have an epidural. Position changes encouraged. VAGINAL EXAM Dilatation: 4 Effacement: 50 Station: -2 Contractions: q2-3 LAST VAGINAL EXAM-NURSING Nursing Exam Dilitation: 1.0 Nursing Exam Effacement: thick Nursing Exam Station: high Nursing Exam Contractions: RN at bedside repositioning MEMBRANES Pooling: Positive Membranes: Ruptured Amniotic Fluid Color: Bloody FETUS A FHR - Baseline: 140 Monitoring: External US Variability: Moderate 6-25bpm Accelerations: 15X15 Decelerations: Early FHR Category: Category I : 40.0 Presentation: Vertex SIGNATURE SIGNATURE: [id number] Assignment: Cindy Reyes MD Signature: with User ID: Snow : with User ID: Snow
[2020-03-15] MEDS ORDERED: EPHEDRINE SULFATE INJ 50 MG/1 ML AMPULE ONE (10:51)
[2020-03-15] MEDS ORDERED: ROPIVACAINE HCL 0.2% INJ/PF (2 MG/ML) 20 ML SDV ONE (10:52)
[2020-03-15] MEDS ORDERED: FENTANYL/BUPIVACAINE/NS/PF 300 MCG/150 ML RTUINJ EPI ONE (10:52)
[2020-03-15] MEDS ORDERED: DIBUCAINE 1% OINTMENT 28 GM TP PRN (12:49)
[2020-03-15] MEDS ORDERED: DIPHENHYDRAMINE HCL 25 MG CAPSULE PO PRN (12:49)
[2020-03-15] MEDS ORDERED: PROMETHAZINE HCL 25 MG TABLET PO PRN (12:49)
[2020-03-15] MEDS ORDERED: PSEUDOEPHEDRINE HCL 30 MG TABLET PO PRN (12:49)
[2020-03-15] MEDS ORDERED: GLYCERIN/WITCH HAZEL LEAF 1 EACH MED..WIPE TP PRN (12:49)
[2020-03-15] MEDS ORDERED: PROMETHAZINE HCL 25 MG SUPP.RECT PR PRN (12:49)
[2020-03-15] MEDS ORDERED: MEASLES,MUMPS&RUBELLA VACC/PF 0.5 ML VIAL SUBCUT PRN (12:49)
[2020-03-15] MEDS ORDERED: PROMETHAZINE HCL INJ 25 MG/1 ML VIAL IV PRN (12:49)
[2020-03-15] MEDS ORDERED: BENZOCAINE/MENTHOL AEROSOL SPRAY 56 ML TOP PRN (12:49)
[2020-03-15] MEDS ORDERED: MISOPROSTOL 0.2 MG TABLET PO PRN (12:49)
[2020-03-15] MEDS ORDERED: ZOLPIDEM TARTRATE 5 MG TABLET PO PRN (12:49)
[2020-03-15] MEDS ORDERED: MAGNESIUM HYDROXIDE SUSP 30 ML UDCUP PO PRN (12:49)
[2020-03-15] MEDS ORDERED: NA PHOS,M-B/NA PHOS,DI-BA (ADULT) 133 ML ENEMA PR PRN (12:49)
[2020-03-15] MEDS ORDERED: ACETAMINOPHEN 325 MG TABLET PO PRN (12:49)
[2020-03-15] MEDS ORDERED: DIPH/PERTUSS(ACELL)/TETANUS VAC/PF 0.5 ML SYR (>=10YO) IM PRN (12:49)
[2020-03-15] MEDS: IBUPROFEN 800 MG TABLET PO SCH ×2 (15:23→22:32)
[2020-03-15] MEDS: DOCUSATE SODIUM 100 MG CAPSULE PO SCH (17:28)
[2020-03-15] MEDS: ACETAMINOPHEN WITH CODEINE #3 TABLET PO PRN ×2 (18:09→22:34)
[2020-03-15] MEDS: FAMOTIDINE 20 MG TABLET PO SCH (22:33)
[2020-03-16] MEDS: IBUPROFEN 800 MG TABLET PO SCH ×3 (06:40→22:21)
[2020-03-16 08:21] LABS: HEMATOCRIT 33.8 % (36.0-47.0); HEMOGLOBIN 11.3 g/dL (12.0-15.5); MEAN CORPUSCULAR HEMOGLOBIN 27.4 pg (27.0-33.4); MEAN CORPUSCULAR HGB CONC 33.4 g/dL (32.0-36.0); MEAN CORPUSCULAR VOLUME 82 fl (80-97); PLATELET COUNT 195 10^3/uL (150-450); RED BLOOD COUNT 4.11 10^6/uL (3.72-5.28); RED CELL DISTRIBUTION WIDTH 17.2 % (11.5-14.0); WHITE BLOOD COUNT 8.6 10^3/uL (4.0-10.5)
[2020-03-16] MEDS: ACETAMINOPHEN WITH CODEINE #3 TABLET PO PRN ×2 (08:40→17:19)
[2020-03-16] MEDS: DOCUSATE SODIUM 100 MG CAPSULE PO SCH ×2 (09:17→17:21)
[2020-03-16] MEDS: FAMOTIDINE 20 MG TABLET PO SCH ×3 (09:17→22:21)
[2020-03-16] MEDS ORDERED: SENNOSIDES/DOCUSATE 8.6-50 MG 1 EACH TABLET PO SCH (10:00)
[2020-03-16] MEDS ORDERED: PRENATAL VITAMIN W DHA CAPSULE PO SCH (10:00)
[2020-03-16] MEDS ORDERED: FERROUS SULFATE 325 MG TABLET PO SCH (10:00)
--- NOTE | 2020-03-16 10:37 | PDOC PROGRESS REPORT ---
Subjective-OB Progress Note for:: 03/16/20 Subjective: reports bleeding slowing, pain controlled with current meds. denies needs Physical Exam (OB) Vital Signs: Temp Pulse Resp BP Pulse Ox 97.8 F 76 16 130/86 H 98 03/16/20 08:32 03/16/20 07:23 03/16/20 07:23 03/16/20 07:23 03/16/20 07:23 Intake & Output 03/15/20 03/16/20 03/17/20 06:59 06:59 06:59 Weight 105.5 kg - Maternal Morbidity 59. Maternal Morbidity (serious complications experinced by the mother associated with labor and delivery: None of the above - Abdomen Description: Soft, Round Hernia Present: No Fundal Description: Firm, Midline Fundal Height: u/u - u/2 - Abdominal Distension: No distension Tenderness: Nontender - Extremities Lower extremities: Shawn's sign - neg Calf: Normal, Nontender Objective-Diagnostic Laboratory: 03/16/20 07:00 03/16/20 07:00 WBC 8.6 RBC 4.11 Hgb 11.3 L Hct 33.8 L MCV 82 MCH 27.4 MCHC 33.4 RDW 17.2 H Plt Count 195 Assessment and Plan(PN) - Time Spent with Patient Time with patient: Less than 15 minutes Medications reviewed and adjusted accordingly: Yes - Disposition Anticipated Discharge Disposition: Home, Self Care Anticipated Discharge Timeframe: within 24 hours
[2020-03-17] MEDS: IBUPROFEN 800 MG TABLET PO SCH (05:34)
[2020-03-17 08:46] VITALS: BP 121/81
--- NOTE | 2020-03-17 11:09 | Progress Note ---
Provider Note Provider Note: notified by RN that pt is ready to go and threatening to leave AMA. CNM in pt room by 1030 and pt not present. CNM notified by RN that pt has signed out AMA and is outside loading her car.
--- NOTE | 2020-03-20 12:46 | Delivery Summary ---
Del Sum A-C Datetime Report Generated by CPN: 03/20/2020 12:45 DELIVERY PERSONNEL DELIVERY PERSONNEL: [id number] Delivery Doctor:: Norma Nichols CNM PRESSED OR BLOWN GLASS WORKER:: Bambi Marshall PRESSED OR BLOWN GLASS WORKER Labor and Delivery Nurse:: Siomara Richmond RNhide worker Nurse:: Mae Vivas RN Nursery Nurse:: Clare Francisco RN Nursery Nurse:: Marian Tavares RN Student Observers:: SN Janee Lighting Equipment Operator/PUMP OPERATOR [employer]PRODUCTS: Elza Fitzgerald, MEDIC TECHNICIAN MATERNAL INFORMATION Delivery Anesthesia: Epidural Medications After Delivery: Pitocin 30 Units in 500ml NS/D5W; Other-Please Comment Meds After Delivery Comment: Cytotec 200kmcg buccal Delivery QBL: 250 Maternal Complications: None Provider Comments: FHR down to 60-70's, VE Ant- lip +2, pt feeling strong urge to push. FSE applied, but with next contraction, baby started to crown. Pt pushed through the anterior lip. of VMI, SANTI, Crying and placed on pts abdoman in stable condition. Cord clamped and cut after one minute. Cord blood collected. Placenta S/C/I. FF with decreased lochia. IV Pitocin infusing plus 200 mcg buccal cytotec given. small 1st degree laceration on perineurm, no repair needed. QBL 250ml, Apgars 9,9. Mother and baby in stable skin to skin. Plans to breast and bottlefeed. Attending MD is Dr Reyes LABOR SUMMARY EDC: 03/16/2020 00:00 No. Babies in Womb: 1 Attempted: No Labor Anesthesia: None LABOR INFORMATION Reason for Induction: Not Applicable Onset of Labor: 03/14/2020 23:50 Complete Dilatation: 03/15/2020 12:22 Oxytocin: Augmentation Group B Beta Strep: Negative Antibiotics # of Doses: 0 Name of Antibiotic Given: N/A Steroids Given: None Reason Steroids Not Administered: Not Applicable MEMBRANES Membranes Rupture Method: Spontaneous Rupture of Membranes: 03/14/2020 23:50 Length of Rupture (hr): 12.67 Amniotic Fluid Color: Clear Amniotic Fluid Amount: Scant Amniotic Fluid Odor: Normal STAGES OF LABOR Stage 1 hr: 12 Stage 1 min: 32 Stage 2 hr: 0 Stage 2 min: 8 Stage 3 hr: 0 Stage 3 min: 5 Total Time in Labor hr: 12 Total Time in Labor min: 45 VAGINAL DELIVERY Episiotomy: None Laceration #1: Perineal Laceration Extension #1: First Degree Laceration Repair: Not Applicable Sponge Count Correct: N/A Sharps Count Correct: N/A CSECTION DELIVERY Primary Indication: N/A Secondary Indication: N/A CSection Incidence: N/A Labor: N/A Elective: N/A CSection Incision: N/A BABY A INFORMATION Delivery Date/Time: 03/15/2020 12:30 Method of Delivery: Vaginal Nurse Controlled Delivery: No Born in Route : No : N/A Forceps: N/A Vacuum Extraction: N/A Shoulder Dystocia : No PRESENTATION/POSITION BABY A Presentation: Cephalic Cephalic Presentation: Vertex Vertex Position: Left Occipital Anterior Breech Presentation: N/A PLACENTA INFORMATION BABY A Placenta Delivery Time : 03/15/2020 12:35 Placenta Method of Delivery: Spontaneous Placenta Status: Delivered SCORES BABY A Heart Rate 1 min: >100 bpm Resp Effort 1 min: Good Cry Reflex Irritability 1 min: Cough or Sneeze or Pulls Away Muscle Tone 1 min: Active Motion Color 1 min: Body Inglis, Extremities Blue Resuscitation Effort 1 min: Tactile Stimulation SCORE 1 MIN: 9 Heart Rate 5 min: >100 bpm Resp Effort 5 min: Good Cry Reflex Irritability 5 min: Cough or Sneeze or Pulls Away Muscle Tone 5 min: Active Motion Color 5 min: Body Inglis, Extremities Blue Resuscitation Effort 5 min: N/A SCORE 5 MIN: 9 INFORMATION BABY A Gestational Age at Delivery: 39.6 Gestational Status: Full Term- 39- 40.6 Weeks Outcome : Liveborn Infant Condition : Stable Infant Sex: Male IDENTIFICATION BABY A Infant Verification Date/Time: 03/15/2020 12:50 ID Band Number: [id number] Mother's Name Verified: Yes RN Verifying Infant: LHall,RN and TMartin,RNC WEIGHT/LENGTH BABY A Infant Birthweight (gm): 3475 Infant Weight (lb): 7 Weight (oz): 11 Length (in): 21.00 Infant Length (cm): 53.34 CORD INFORMATION BABY A No. Cord Vessels: 3 Nuchal Cord : N/A Cord Blood Taken: Yes-For Eval (Mom's Blood Type - or O+) Infant Suction: None ASSESSMENT BABY A Infant Complications: None Physical Findings at Delivery: Within Normal Limits Respirations: Appears Normal Skin to Skin: No Transferred To: Remains with Mother BABY B INFORMATION : N/A SIGNATURES Assignment: Cindy Reyes MD Signature: with User ID: Snow : with User ID: Snow
== END 2020-03-17 10:56 | disposition left against medical advice (07) | DRG 807 ==
LOC: LC 23:22 → LR 03-15 00:39 → 2S 03-15 15:06
PROVIDERS: ADMIT Obstetrics & Gynecology; ATTEND Obstetrics & Gynecology
PROC: 10E0XZZ Delivery of Products of Conception, External Approach (ICD-10-PCS; principal; 2020-03-15)
DX: O24.420 Gestational diabetes mellitus in childbirth, diet controlled (principal); Z37.0 Single live birth; O70.0 First degree perineal laceration during delivery; Z3A.39 39 weeks gestation of pregnancy; O99.284 Endocrine, nutritional and metabolic diseases complicating childbirth; E01.0 Iodine-deficiency related diffuse (endemic) goiter
CPT/HCPCS: 1967; 36415; 80307; 81005; 84112; 85025; 85027; 86592; 86850; 86900; 86901; 94760; J2590; J2795; J3010; J3490